=== PATIENT | male | born 1985 | race Caucasian/White ===

== ENCOUNTER 2018-09-08 19:54 | Emergency (ER) | payer OTHER ==
--- NOTE | 2018-09-08 19:57 | ER Report ---
History and Physical Time Seen By MD: 19:56 HPI/ROS CHIEF COMPLAINT: Epigastric pain HISTORY OF PRESENT ILLNESS: 32-year-old male presents with diarrhea of coffee- ground stools. Patient notes onset this morning of epigastric discomfort. He has no history of GI bleed. His notes her stools are black, but he did take Pepto-Bismol. Patient describes crampy epigastric pain 8/10 in both upper quadrants. Patient notes nausea but no vomiting. Patient said several episodes of diarrhea. He denies recent antibiotic use, travel or exposure to ill contacts. REVIEW OF SYSTEMS: Respiratory: No cough, no dyspnea. Cardiovascular: No chest pain, no palpitations. Gastrointestinal: As above Musculoskeletal: [No back pain.] Allergies: Uncoded Allergies: ANESTHESIA (Adverse Reaction, Unknown, "MAKES ME PISSED OFF", 06/21/18) Home Meds Active Scripts Ondansetron Hcl (ZOFRAN) 4 Mg Tablet, 4 MG PO Q6H PRN for NAUSEA/VOMITING, #10 Prov:JAYESH OWENS DO 09/08/18 Hydrocodone Bit/Acetaminophen (HYDROCODON-ACETAMINOPHEN 5-325) 1 Each Tablet, 1 EACH PO Q4-6H PRN for PAIN, #10 TAB Prov:GRACIELAJAYESH DO 09/08/18 Reviewed Nurses Notes: Yes Old Medical Records Reviewed: Yes Hx Substance Use Disorder: No Hx Alcohol Use: No Constitutional Vital Sign - Last 24 Hours 09/08/18 09/08/18 09/08/18 09/08/18 20:01 20:01 20:30 20:31 Temp 98.2 Pulse 106 78 Resp 16 B/P (MAP) 136/71 (92) 136/71 108/58 (75) Pulse Ox 91 94 O2 Delivery Room Air O2 Flow Rate 1.0 09/08/18 21:00 Pulse 71 B/P (MAP) 114/54 (74) Pulse Ox 95 Physical Exam Vital signs stable, afebrile, pulse ox normal General Appearance: The patient is alert, has no immediate need for airway protection and no current signs of toxicity. Slightly pale appearing, skin warm and dry, mild distress HEENT: Pupils equal and round no injection. Oropharynx without redness, exudate Respiratory: Chest is non tender, lungs are clear to auscultation. Cardiac: regular rate and rhythm Gastrointestinal: Abdomen is soft mild bilateral upper quadrant tenderness, no rebound or guarding, no masses, bowel sounds hyperactive Musculoskeletal: Neck: Neck is supple and non tender. No lymphadenopathy Extremities have full range of motion and are non tender. Skin: No rashes or lesions. DIFFERENTIAL DIAGNOSIS: After history and physical exam differential diagnosis was considered for abdominal pain including but not limited to appendicitis, cholecystitis, gastritis, gastroenteritis, food poisoning, viral syndrome and urinary tract infection. Medical Decision Making Data Points Result Diagram: 09/08/18200309/08/182003 Laboratory Hematology Test 09/08/18 20:00 09/08/18 20:04 Urine Color Yellow Urine Clarity Slightly-cloudy Urine pH 5.0 pH (4.8-9.5) Urine Specific [place] 1.021 Urine Protein Negative mg/dL (NEGATIVE) Urine Glucose (UA) Negative mg/dL (NEGATIVE) Urine Ketones Negative mg/dL (NEGATIVE) Urine Blood Negative (NEGATIVE) Urine Nitrite Negative (NEGATIVE) Urine Bilirubin Negative (NEGATIVE) Urine Urobilinogen Negative mg/dL (0.2-1.9) Urine Leukocyte Esterase Trace (NEGATIVE) Urine RBC 2 /HPF (0-2/HPF) Urine WBC 10 /HPF (0-5/HPF) Urine Squamous Epithelial Cells Many /LPF (</=FEW) Urine Bacteria Few /HPF (NONE-FEW) Urine Hyaline Casts Few /LPF (NONE-FEW) Urine Mucus Few /HPF (NONE-FEW) Red Blood Count 5.70 M/uL (4.00-5.60) Mean Corpuscular Volume 81.3 fL (80.0-96.0) Mean Corpuscular Hemoglobin 27.9 pg (26.0-33.0) Mean Corpuscular Hemoglobin Concent 34.3 g/dL (32.0-36.0) Red Cell Distribution Width 14.3 % (11.5-14.5) Mean Platelet Volume 7.6 fL (7.2-11.1) Neutrophils (%) (Auto) 66.9 % (39.4-72.5) Lymphocytes (%) (Auto) 24.0 % (17.6-49.6) Monocytes (%) (Auto) 7.2 % (4.1-12.4) Eosinophils (%) (Auto) 1.1 % (0.4-6.7) Basophils (%) (Auto) 0.8 % (0.3-1.4) Nucleated RBC Relative Count (auto) 0.1 /100WBC Neutrophils # (Auto) 7.3 K/uL (2.0-7.4) Lymphocytes # (Auto) 2.6 K/uL (1.3-3.6) Monocytes # (Auto) 0.8 K/uL (0.3-1.0) Eosinophils # (Auto) 0.1 K/uL (0.0-0.5) Basophils # (Auto) 0.1 K/uL (0.0-0.1) Nucleated RBC Absolute Count (auto) 0.01 K/uL Prothrombin Time 13.4 seconds (12.0-14.4) Prothromb Time International Ratio 1.02 Activated Partial Thromboplast Time 37 seconds (23-35) Sodium Level 141 mmol/L (137-145) Potassium Level 3.7 mmol/L (3.5-5.0) Chloride Level 105 mmol/L (98-107) Carbon Dioxide Level 25 mmol/L (22-30) Blood Urea Nitrogen 10 mg/dl (9-21) Creatinine 0.90 mg/dl (0.66-1.25) Glomerular Filtration Rate Calc > 60.0 Random Glucose 121 mg/dl (75-110) Lactate 1.5 mmol/L (0.7-2.1) Calcium Level 9.9 mg/dl (8.4-10.2) Total Bilirubin 0.4 mg/dl (0.2-1.3) Aspartate Amino Transf (AST/SGOT) 30 U/L (0-35) Alanine Aminotransferase (ALT/SGPT) 48 U/L (0-56) Alkaline Phosphatase 74 U/L (0-126) Total Protein 8.1 g/dl (6.3-8.2) Albumin 4.9 g/dl (3.5-5.0) Amylase Level 52 U/L (0-110) Lipase 55 U/L (23-300) Chemistry Test 09/08/18 20:00 09/08/18 20:04 Urine Color Yellow Urine Clarity Slightly-cloudy Urine pH 5.0 pH (4.8-9.5) Urine Specific [place] 1.021 Urine Protein Negative mg/dL (NEGATIVE) Urine Glucose (UA) Negative mg/dL (NEGATIVE) Urine Ketones Negative mg/dL (NEGATIVE) Urine Blood Negative (NEGATIVE) Urine Nitrite Negative (NEGATIVE) Urine Bilirubin Negative (NEGATIVE) Urine Urobilinogen Negative mg/dL (0.2-1.9) Urine Leukocyte Esterase Trace (NEGATIVE) Urine RBC 2 /HPF (0-2/HPF) Urine WBC 10 /HPF (0-5/HPF) Urine Squamous Epithelial Cells Many /LPF (</=FEW) Urine Bacteria Few /HPF (NONE-FEW) Urine Hyaline Casts Few /LPF (NONE-FEW) Urine Mucus Few /HPF (NONE-FEW) White Blood Count 10.9 k/uL (4.5-11.0) Red Blood Count 5.70 M/uL (4.00-5.60) Hemoglobin 15.9 g/dL (14.0-18.0) Hematocrit 46.3 % (42.0-52.0) Mean Corpuscular Volume 81.3 fL (80.0-96.0) Mean Corpuscular Hemoglobin 27.9 pg (26.0-33.0) Mean Corpuscular Hemoglobin Concent 34.3 g/dL (32.0-36.0) Red Cell Distribution Width 14.3 % (11.5-14.5) Platelet Count 402 K/uL (150-450) Mean Platelet Volume 7.6 fL (7.2-11.1) Neutrophils (%) (Auto) 66.9 % (39.4-72.5) Lymphocytes (%) (Auto) 24.0 % (17.6-49.6) Monocytes (%) (Auto) 7.2 % (4.1-12.4) Eosinophils (%) (Auto) 1.1 % (0.4-6.7) Basophils (%) (Auto) 0.8 % (0.3-1.4) Nucleated RBC Relative Count (auto) 0.1 /100WBC Neutrophils # (Auto) 7.3 K/uL (2.0-7.4) Lymphocytes # (Auto) 2.6 K/uL (1.3-3.6) Monocytes # (Auto) 0.8 K/uL (0.3-1.0) Eosinophils # (Auto) 0.1 K/uL (0.0-0.5) Basophils # (Auto) 0.1 K/uL (0.0-0.1) Nucleated RBC Absolute Count (auto) 0.01 K/uL Prothrombin Time 13.4 seconds (12.0-14.4) Prothromb Time International Ratio 1.02 Activated Partial Thromboplast Time 37 seconds (23-35) Glomerular Filtration Rate Calc > 60.0 Lactate 1.5 mmol/L (0.7-2.1) Calcium Level 9.9 mg/dl (8.4-10.2) Total Bilirubin 0.4 mg/dl (0.2-1.3) Aspartate Amino Transf (AST/SGOT) 30 U/L (0-35) Alanine Aminotransferase (ALT/SGPT) 48 U/L (0-56) Alkaline Phosphatase 74 U/L (0-126) Total Protein 8.1 g/dl (6.3-8.2) Albumin 4.9 g/dl (3.5-5.0) Amylase Level 52 U/L (0-110) Lipase 55 U/L (23-300) Coagulation Test 09/08/18 20:04 Prothrombin Time 13.4 seconds Prothromb Time International Ratio 1.02 Activated Partial Thromboplast Time 37 seconds Urinalysis Test 09/08/18 20:00 Urine Color Yellow Urine Clarity Slightly-cloudy Urine pH 5.0 pH (4.8-9.5) Urine Specific [place] 1.021 Urine Protein Negative mg/dL (NEGATIVE) Urine Glucose (UA) Negative mg/dL (NEGATIVE) Urine Ketones Negative mg/dL (NEGATIVE) Urine Blood Negative (NEGATIVE) Urine Nitrite Negative (NEGATIVE) Urine Bilirubin Negative (NEGATIVE) Urine Urobilinogen Negative mg/dL (0.2-1.9) Urine Leukocyte Esterase Trace (NEGATIVE) Urine RBC 2 /HPF (0-2/HPF) Urine WBC 10 /HPF (0-5/HPF) Urine Squamous Epithelial Cells Many /LPF (</=FEW) Urine Bacteria Few /HPF (NONE-FEW) Urine Hyaline Casts Few /LPF (NONE-FEW) Urine Mucus Few /HPF (NONE-FEW) ED Course/Re-evaluation Clinical Indication for ER IV: Hydration, IV Access ED Course Patient was admitted to an examination room. H&P was done. The differential diagnoses was considered. On clinical examination. Patient has epigastric pain. He has increased hyperactive bowel sounds. He's been having diarrhea. He describes coffee-ground or black stools. He did take Pepto-Bismol. Surgery may have an upper GI bleed. Patient denies NSAID to excess, excess caffeine or alcohol. He does not suffer GERD symptoms. Peripheral IV is established. Diagnostic studies are unremarkable. He has a stable H&H. His vital signs are stable. His symptoms are controlled with Zofran IV. Patient's advised clear liquid diet for 48 hours with bowel rest. He is given a limited supply of Lortab and Zofran for symptomatically relief. He is advised to take Prilosec for 2 weeks. He's advised to follow-up with primary care if he has further dark stools. Decision to Disposition Date: Sep 08, 2018 Decision to Disposition Time: 20:58 Depart Departure Latest Vital Signs Vital Signs Date Time Temp Pulse Resp B/P (MAP) Pulse Ox O2 Delivery O2 Flow Rate FiO2 09/08/18 21:00 71 114/54 (74) 95 09/08/18 20:31 1.0 09/08/18 20:01 98.2 16 Room Air Impression: Primary Impression: Abdominal pain Additional Impression: Diarrhea Condition: Improved Disposition: HOME OR SELF-CARE Referrals: KEIKO BLANCA MD, FARRUKH MD New Scripts Ondansetron Hcl (ZOFRAN) 4 Mg Tablet 4 MG PO Q6H PRN for NAUSEA/VOMITING, #10 Prov: JAYESH OWENS DO 09/08/18 Hydrocodone Bit/Acetaminophen (HYDROCODON-ACETAMINOPHEN 5-325) 1 Each Tablet 1 EACH PO Q4-6H PRN for PAIN, #10 TAB Prov: JAYESH OWENS DO 09/08/18 Patient Instructions: Abdominal Pain (ED), Clear Liquid Diet (ED) Additional Instructions: Follow clear liquid diet for 48 hours, then advance to the brat diet, bananas, rice, applesauce and toast Take Prilosec 20 mg per day to reduce her stomach acid for 2 weeks Follow-up with primary care Dr Harrison or Darin in 3-5 days if unimproved Problem Qualifiers Primary Impression: Abdominal pain Abdominal location: epigastric Qualified Codes: R10.13 - Epigastric pain Additional Impression: Diarrhea Diarrhea type: unspecified type Qualified Codes: R19.7 - Diarrhea, unspecified JAYESH OWENS DO Sep 08, 2018 19:56
[2018-09-08] MEDS ORDERED: NS(*) 0.9% 1000 ML BAG 1,000 ML IV ONE (20:01)
[2018-09-08] MEDS ORDERED: ONDANSETRON 4 MG/2 ML VIAL IVP ONE (20:05)
[2018-09-08] MEDS ORDERED: fentaNYL CITR 100 MCG/2 ML AMP IVP ONE (20:05)
[2018-09-08 20:16] LABS: PLATELET COUNT, AUTOMATED 402 K/uL (150-450)
[2018-09-08 20:23] LABS: INR 1.02
[2018-09-08 21:00] VITALS: BP 114/54
[2018-09-08] MEDS ORDERED: ONDA4TAB97 PO (21:01)
[2018-09-08] MEDS ORDERED: LOR5/325 PO (21:01)
[2018-09-08] MEDS ORDERED: ACET/HYDROC 5/325MG TH ER ONLY 2 TAB/BOTTLE PO ONE (21:05)
[2018-09-08] MEDS ORDERED: ONDANSETRON 4 MG ODT TH SL ONE (21:05)
== END 2018-09-08 21:14 | disposition home or self-care (01) ==
LOC: ER 20:01
DX: R10.13 Epigastric pain (principal); R19.7 Diarrhea, unspecified
CPT/HCPCS: 81001; 82150; 83605; 83690; 85025; 85610; 85730; 96361; 96374; 96375; 99284; J2405; J3010; J7030; S0119; 82040; 82247; 82310; 82374; 82435; 82565; 82947; 84075; 84132; 84155; 84295; 84450; 84460; 84520